=== PATIENT | male | born 1965 | race Caucasian/White ===

== ENCOUNTER 2017-04-23 13:25 | Emergency (ER) | payer OTHER | END 2017-04-23 14:20 | disposition home or self-care (01) | LOC: ER 13:25 | DX: C20 Malignant neoplasm of rectum (principal); C78.7 Secondary malignant neoplasm of liver and intrahepatic bile duct; G89.3 Neoplasm related pain (acute) (chronic); R10.9 Unspecified abdominal pain; Z79.899 Other long term (current) drug therapy | CPT/HCPCS: 96372; 99282-25; J1170 ==

== ENCOUNTER 2017-04-27 20:25 | Emergency (ER) | payer OTHER | END 2017-04-27 22:48 | disposition home or self-care (01) | LOC: ER 20:25 | DX: K62.89 Other specified diseases of anus and rectum (principal); C19 Malignant neoplasm of rectosigmoid junction; C78.7 Secondary malignant neoplasm of liver and intrahepatic bile duct; K21.9 Gastro-esophageal reflux disease without esophagitis; Z93.3 Colostomy status; Z90.49 Acquired absence of other specified parts of digestive tract; Z79.899 Other long term (current) drug therapy | CPT/HCPCS: 96372; 99282-25 ==